=== PATIENT | female | born 1965 | race Caucasian/White ===

== ENCOUNTER 2019-06-29 05:53 | Observation (INO) ==
[2019-06-29] MEDS ORDERED: ASPIRIN ONE (06:11)
[2019-06-29] MEDS ORDERED: NITROGLYCERIN ONE (06:21)
[2019-06-29] MEDS ORDERED: ASPIRIN PO ONE (06:22)
[2019-06-29] MEDS ORDERED: TYLENOL PO ONE (06:24)
[2019-06-29] MEDS: ASPIRIN PO ONE ×2 (06:24→06:27)
[2019-06-29] MEDS ORDERED: NITROGLYCERIN SL ONE (06:25)
[2019-06-29 06:36] LABS: BASO# 0.02 X1000 (0.0-0.2); BASO% 0.2 % (0.0-0.8); EOS# 0.17 X1000 (0.0-0.7); HEMATOCRIT 42.1 % (37.0-47.0); LYMPH# 2.63 X1000 (1.2-3.4); LYMPH% 31.5 % (20.5-51.1); MCH 30.2 PG (27-31); MCHC 33.3 g/dL (33-37); MCV 90.9 FL (81-99); MONO# 0.47 X1000 (0.11-0.59); MONO% 5.6 % (1.7-9.3); MPV 10.1 FL (7.4-10.4); NEUT# 5.06 X1000 (1.4-6.5); NEUT% 60.7 % (42.2-75.2); PLT 214 X1000 (130-400); RBC 4.63 XMIL (4.2-5.4); RDW 13.1 % (11.5-14.5); WBC 8.35 X1000 (4.8-10.8)
--- NOTE | 2019-06-29 06:36 | PROVIDER DOCUMENTATION ---
HPI-Chest Pain - General Chief Complaint: Chest Pain Stated Complaint: CHEST PAIN (L) SIDE (PT IS DEAF) Time Seen by Provider: 06/29/19 06:09 Allergies/Adverse Reactions: Patient Allergies Allergy/AdvReac Type Severity Reaction Status Date / Time Penicillins Allergy Unknown Verified 06/29/19 06:59 Home Medications: Home Medication List Medication Instructions Recorded Confirmed Last Taken Type Isosorbide Mononitrate E.r. [Imdur] 30 mg PO DAILY 11/11/15 06/29/19 05/26/16 History Amlodipine [Norvasc] 10 mg PO DAILY 06/29/19 06/29/19 Unknown History Aspirin 81 mg PO DAILY 06/29/19 06/29/19 Unknown History - History of Present Illness-CP Location: reports: substernal Chest Pain Radiation: reports: jaw Severity in ED: moderate Onset/Duration: abrupt, other (ONSET O445) Timing: still present Context/Activities at Onset: reports: sleep Modifying Factors: improves with: nothing Associated Symptoms: denies: diaphoresis, shortness of breath Nitro Today/Relief: no nitro taken today Aspirin Treatment Today: no aspirin today Prior Chest Pain/Cardiac Workup: reports: no prior chest pain Similar Symptoms Previously?: No Recently Seen Here or By Another Healthcare Provider: No Review of Systems - Adult - REVIEW OF SYSTEMS - ADULT Constitutional: reports: no symptoms reported. denies: chills, fever, fatique Eyes: reports: no symptoms reported Ears, Nose, Mouth & Throat: reports: no symptoms reported Cardiovascular: reports: no symptoms reported Respiratory: reports: no symptoms reported Gastrointestinal: reports: no symptoms reported Genitourinary: reports: no symptoms reported Musculoskeletal: reports: no symptoms reported Integumentary: reports: no symptoms reported Neurological: reports: no symptoms reported, dizziness/vertigo (X 1 WK) Psychiatric: reports: no symptoms reported Endocrine: reports: no symptoms reported Hematologic/Lymphatic: reports: no symptoms reported Allergic/Immunologic: reports: no symptoms reported All Other Systems: Reviewed and Negative Past History - Adult - PAST MEDICAL HISTORY-ADULT Review of Records: reports: Nursing Assessment Review, Medications Reviewed, Social history reviewed & non-contributory. 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 TRTEATED FOR HTN, NO HTN MEDS TAKEN YET THIS MORNING.) Respiratory: reports: denies history Gastrointestinal: reports: denies history Obstetrical/Gynecological: reports: denies history Genitourinary: reports: denies history Musculoskeletal: reports: denies history Neurological: reports: denies history Endocrine/Immune: reports: denies history Other Conditions: reports: denies history - PRIOR SURGERIES/PROCEDURES Surgical/Procedure History: reports: hysterectomy - IMMUNIZATION STATUS Childhood Immunizations: See Nurse Assessment Flu Vaccine: See Nurse Assessment Physical Exam-General - PHYSICAL EXAM-ADULT Initial Vital Signs Reviewed: Yes (HTN) - CONSTITUTIONAL General Appearance: alert, moderate distress - EYES Eyes: PERRL/EOMI, pink conjunctivae - HEAD, EARS, NOSE, MOUTH & THROAT HENMT: normocephalic/atraumatic, moist mucous membranes - NECK Neck: full range of motion, supple - RESPIRATORY Respiratory: chest non-tender, lungs clear, no respiratory distress - CARDIOVASCULAR Cardiovascular: normal peripheral pulses, regular rate, rhythm, no edema, no ga llop, no JVD, no murmur - GASTROINTESTINAL (ABDOMEN) Abdominal Exam: non tender, soft - MUSCULOSKELETAL Extremity: normal range of motion, non-tender, normal inspection, no pedal edema , no calf tenderness - SKIN Integumentary: normal color, normal turgor - 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 negative: facial droop - PSYCHIATRIC Psych/Mental Status: normal mood/affect, normal thought content, normal thought process, oriented x 3 - HEART Score HEART Score: History: Moderately Suspicious HEART Score: ECG: Non-Specific Repolarization Disturbance/LBBB/PM HEART Score: Age: 45-65 Years HEART Score: Risk Factors for Atherosclerotic Disease: 1 or 2 Risk Factors Progress - PLAN OF CARE/RESULTS Progress/Plan/Lab Results: Vital Signs - 8 hr 06/29/19 06:02 Temperature 98.9 F Pulse Rate 69 Respiratory Rate 21 Blood Pressure 190/92 O2 Sat by Pulse Oximetry 98 Laboratory Results - last 24 hr 06/29/19 06/29/19 06/29/19 06:28 06:28 06:28 WBC 8.35 RBC 4.63 Hgb 14.0 Hct 42.1 MCV 90.9 MCH 30.2 MCHC 33.3 RDW Std Deviation 13.1 Plt Count 214 MPV 10.1 Immature Gran % (Auto) 0.0 Neut % (Auto) 60.7 Lymph % (Auto) 31.5 Walker % (Auto) 5.6 Eos % (Auto) 2.0 Baso % (Auto) 0.2 Immature Gran # (Auto) 0.00 Neut # (Auto) 5.06 Lymph # (Auto) 2.63 Walker # (Auto) 0.47 Eos # (Auto) 0.17 Baso # (Auto) 0.02 D-Dimer, Quantitative 0.49 Sodium 138 Potassium 4.3 Chloride 105 Carbon Dioxide 23 L Anion Gap 10 BUN 16 Creatinine 0.7 Estimated GFR/1.73 m2 > 60 BUN/Creatinine Ratio 23 Glucose 112 H Calculated Osmolality 278 Calcium 9.3 Magnesium 2.0 Total Bilirubin 0.41 AST 18 ALT 17 Alkaline Phosphatase 62 Troponin T Total Protein 6.5 Albumin 4.0 Globulin 2.5 Albumin/Globulin Ratio 1.6 06/29/19 06:28 WBC RBC Hgb Hct MCV MCH MCHC RDW Std Deviation Plt Count MPV Immature Gran % (Auto) Neut % (Auto) Lymph % (Auto) Walker % (Auto) Eos % (Auto) Baso % (Auto) Immature Gran # (Auto) Neut # (Auto) Lymph # (Auto) Walker # (Auto) Eos # (Auto) Baso # (Auto) D-Dimer, Quantitative Sodium Potassium Chloride Carbon Dioxide Anion Gap BUN Creatinine Estimated GFR/1.73 m2 BUN/Creatinine Ratio Glucose Calculated Osmolality Calcium Magnesium Total Bilirubin AST ALT Alkaline Phosphatase Troponin T < 0.010 Total Protein Albumin Globulin Albumin/Globulin Ratio Orders Category Date Time Status Cardiac Monitoring DIRECTED Care 06/29/19 06:19 Active Saline Loc NOW Care 06/29/19 06:19 Active CHEST-PORTABLE [RAD] Stat Exams 06/29/19 06:22 Taken CBC WITH ELECTRONIC DIFF [HEME] Stat Lab 06/29/19 06:28 Completed COMPREHENSIVE METABOLIC PANEL [CHEM] Stat Lab 06/29/19 06:28 Completed D-DIMER [COAG] Stat Lab 06/29/19 06:28 Completed FREE T4 Stat Lab 06/29/19 06:28 Received MAGNESIUM [CHEM] Stat Lab 06/29/19 06:28 Completed PROTIME WITH INR [COAG] Stat Lab 06/29/19 06:28 Received PTT [COAG] Stat Lab 06/29/19 06:28 Received TROPONIN T Stat Lab 06/29/19 06:28 Completed URINALYSIS W/POSS RFLX CULT [URINALYSIS] Stat Lab 06/29/19 06:59 Ordered Acetaminophen [Tylenol] Med 06/29/19 06:24 Discontinued 650 mg PO NOW ONE Aspirin Med 06/29/19 06:11 Discontinued 325 mg .ROUTE .STK-MED ONE Aspirin Med 06/29/19 06:22 Discontinued 325 mg PO NOW ONE Aspirin Med 06/29/19 06:24 Discontinued 325 mg PO NOW ONE Nitroglycerin Sl [Nitroglycerin] Med 06/29/19 06:21 Discontinued 0.4 mg .ROUTE .STK-MED ONE Nitroglycerin Sl [Nitroglycerin] Med 06/29/19 06:25 Discontinued 0.4 mg SL NOW ONE EKG [EKG] Stat Ther 06/29/19 06:19 Ordered EKG [EKG] Stat Ther 06/29/19 06:22 Ordered Result Diagrams: 06/29/19 06:28 06/29/19 06:28 - REASSESSMENT Reassessment #1 Time Reassessed: 06:45 Status: improving (CP BETTER WITH NITRO, ASA) - EKG 1 Time of EKG reading by physician:: 06:03 EKG Read and Signed by:: Raymundo Romero EKG Interpretation (*Must complete 3 of following elements*): Abnormal Rate: 65 Rhythm: NSR [place]: left QRS: RBB LA Interval: normal Comments: NSR,RBBB,L ANT FASCIC BLOCK,LVH - CONSULTS/PCP/HOSPITALIST Notification #1 *Consult/PCP/Hospitalist*: d/w Rosalva LINO, Time Discussed: 08:12 Consult Disposition: Admit (requested cardiology consult. Will page cardiology.) - CHANGE OF SHIFT REPORT (ED Provider) 1 Report Given and Care Transferred to:: DR Loni SOTELO Time of Transfer: 07:00 Items Pending: Labs, XRAY Results, Pain Control, Physician Consult/Arrival Departure - Departure Date of Disposition Decision: 06/29/19 Time of Disposition Decision: 08:17 DIAGNOSIS: Chest pain Disposition: ADMITTED INPATIENT 09 Certified Medical Emergency: Emergent Condition: Stable Referrals and Follow-Ups: Liliya Smith CRNP [Primary Care Provider] - - Critical Care Note This patient required my direct & personal management of CC.: No Attestation - Physician/ GARCÍA Attestation Patient care was provided by Advanced Practice Provider:: No The physician spent face to face time with patient:: Yes Advanced Practice Provider documentation review:: Supervising physician onsite and consulted in the evaluation and care of this patient. The physician did have a face to face encounter with the patient.
[2019-06-29 06:51] LABS: AGAP 10; ALB/GLOB RATIO 1.6; ALKALINE PHOSPHATASE 62 U/L (32-104); BUN 16 mg/dL (8-22); CALCIUM 9.3 mg/dL (8.8-10.2); CHLORIDE 105 mmol/L (98-107); COSMO 278; CREATININE 0.7 mg/dL (0.5-0.9); ESTIMATED GFR > 60; GLUCOSE 112 mg/dL (70-104); GOT 18 U/L (10-30); GPT 17 U/L (10-36); POTASSIUM 4.3 mmol/L (3.5-5.1); SODIUM 138 mmol/L (136-145); TCO2 23 mmol/L (25-35); TOTAL BILIRUBIN 0.41 mg/dL (0.20-1.00); TOTAL PROTEIN 6.5 g/dL (6.3-8.3)
[2019-06-29 07:08] LABS: URINE SOURCE CLEAN CATCH
[2019-06-29 07:14] LABS: BILIRUBIN URINE NEGATIVE (NEGATIVE); BLOOD URINE NEGATIVE (NEGATIVE); COLOR YELLOW; GLUCOSE URINE NEGATIVE (NEGATIVE); KETONE URINE NEGATIVE (NEGATIVE); LEUKOCYTES URINE NEGATIVE (NEGATIVE); NITRITE URINE NEGATIVE (NEGATIVE); PH URINE 6.5; PROTEIN URINE NEGATIVE (NEGATIVE); SP GRAVITY URINE 1.015; TURBIDITY URINE CLEAR (CLEAR); UROBILINOGEN URINE NORMAL (NORMAL)
[2019-06-29 07:15] LABS: UR EPITHELIAL CELLS <10 /HPF (<10); URINE BACTERIA NEGATIVE /HPF; URINE RBC <10 /HPF (<10); URINE WBC <10 /HPF (<10)
--- NOTE | 2019-06-29 07:21 | Diag Imaging Result Doc PS360 ---
EXAM: CHEST-PORTABLE HISTORY: CP TECHNIQUE: Single view COMPARISON: 11/25/2017 FINDINGS: The lungs are well expanded. The heart is mildly prominent. The vessels are not distended. There are no infiltrates. No effusion identified. IMPRESSION: Mildly prominent heart. Electronically signed by Vasile Merida 06/29/2019 7:18 AM
[2019-06-29 07:28] LABS: INR 0.96; PROTIME 12.8 Seconds (11.0-16.0); PTT 28.1 Seconds (22.3-41.8)
--- NOTE | 2019-06-29 07:44 | EKG Report ---
Test Performed on : 06/29/2019 06:55:01 AM Test Reason : CP Blood Pressure : / mmHG Vent. Rate : 065 BPM Atrial Rate : 065 BPM P-R Int : 154 ms QRS Dur : 134 ms QT Int : 424 ms P-R-T Axes : 050 -57 004 degrees QTc Int : 440 ms Normal sinus rhythm. Right bundle branch block Left anterior fascicular block Bifascicular block Voltage criteria for left ventricular hypertrophy Abnormal ECG No previous ECGs available Unconfirmed Result
[2019-06-29] MEDS ORDERED: ZOFRAN IV PRN (08:52)
[2019-06-29] MEDS ORDERED: TYLENOL PO PRN (08:52)
[2019-06-29] MEDS ORDERED: NITROGLYCERIN SL PRN (08:52)
[2019-06-29] MEDS ORDERED: LOVENOX SUBQ SCH (09:00)
[2019-06-29] MEDS ORDERED: APRESOLINE IV PRN ×2 (10:06→11:13)
[2019-06-29 10:10] LABS: HEMOGLOBIN A1C 5.3 % (4.8-6.0)
--- NOTE | 2019-06-29 11:28 | EKG Report ---
Test Performed on : 06/29/2019 09:22:46 AM Test Reason : ED. No order in [place] Blood Pressure : / mmHG Vent. Rate : 044 BPM Atrial Rate : 044 BPM P-R Int : 158 ms QRS Dur : 132 ms QT Int : 478 ms P-R-T Axes : 033 -52 004 degrees QTc Int : 408 ms Marked sinus bradycardia. Right bundle branch block Left anterior fascicular block Bifascicular block Voltage criteria for left ventricular hypertrophy Abnormal ECG When compared with ECG of 29-JUN-2019 06:55, (Unconfirmed) Vent. rate has decreased BY 21 BPM Unconfirmed Result
[2019-06-29] MEDS ORDERED: ROBAXIN PO ONE (11:48)
[2019-06-29] MEDS ORDERED: ROBAXIN PO PRN (11:48)
--- NOTE | 2019-06-29 12:49 | HISTORY AND PHYSICAL ---
PRIMARY CARE PROVIDER: ZOIE Ramires. CHIEF COMPLAINT: Chest pain. HISTORY OF PRESENT ILLNESS: Ms. Angélica Nunez is a 53-year-old, female with a medical history of hypertension, depression, and complete deafness, and apparently a history of some chronic chest pains. She has had a stress test back in 2012, which at that time was reported as either breast attenuation or a suggestion of mild degree of inducible ischemia involving the apical anterior portion of the left ventricle. She does not smoke. She has a normal cholesterol level. She is not diabetic. She is only mildly overweight with a BMI of 35.8. She states that over the last 24 hours, she has been having intermittent chest pain that has radiated into the jaw, the teeth, the neck, down into the left arm. She claims that it can be reproduced when she presses on her chest and it was reproduced mostly in the muscular area closest to the left axillary area. She works at a location called [employer] where she is on her feet for 8 hours and constantly pushing, pulling, and lifting with strenuous amounts of weight. Currently, she is chest pain-free at this time. Cardiac workup included cardiac enzymes which were negative, an EKG without any ST elevations. She did receive nitroglycerin in the emergency department which caused her to have a headache. Apparently, she had not had any of her morning medications which included Norvasc. That was resumed because she presented with a blood pressure anywhere from 170s to 190s and so we will admit her for a full cardiac workup including an echocardiogram, cardiac enzymes, EKG for tomorrow, and a stress test today. Please note that the patient is deaf. The [employer] system is not working. Interpretation services are not going to be available until tomorrow morning. Currently attempting to get [employer] services to work. She may be moved to a different room but we will find a location that will be reproducible for a service of interpretation and sign language. It is noted that she has a daughter who is deaf at the bedside. She has an 11-year-old son who does speak sign language but not officially an audit director for medical terms. During the examination and the assessment and questioning, the patient turned to her son after stating that he is not allowed to interpret for her, that she asked him to describe what kind of work she does as far as the pushing and pulling and being on her feet for 8 or more hours a day. Otherwise, all questions and answers were via a dry erase board. Once leaving the room, she had no further questioning. The patient was explained what she was here for and what all of workup would be included during her stay. PAST MEDICAL HISTORY: 1. Deaf. 2. Depression. 3. Chronic chest pain. 4. Hypertension. SURGICAL HISTORY: 1. Two sections. 2. Hysterectomy. SOCIAL HISTORY: She denies drinking alcohol, smoking, or any illicit drug use. She has 2 children. Her son currently is 11, is able to speak some sign language and he is able to hear. Then she has a daughter who is also deaf, and she currently works at [employer] full-time. FAMILY HISTORY: Father of a myocardial infarction at the age of 54. Mother and sister, they had hyperlipidemia, diabetes, and hypertension. ALLERGIES: Penicillin. HOME MEDICATIONS: 1. Aspirin 81 mg p.o. daily. 2. Imdur 30 mg p.o. daily. 3. Norvasc 10 mg p.o. daily. REVIEW OF SYSTEMS: All are negative except those mentioned above in the HPI except for her intermittent chest pain is 8/10 when it does happen. Last week, she had some dizziness with headaches. She had also seen her primary care provider during that time, Liliya Smith, who claimed it was fluid in the ears. She has had some complaints of frequent urination. The chest pain is worse with activity and is resolved with resting. PHYSICAL EXAMINATION: VITAL SIGNS: Temperature 97.8 degrees, heart rate 59, respiratory rate 21, blood pressure 179/54, O2 saturation 99% on room air. GENERAL: Ms. Angélica Nunez is a 53-year-old, female. She is in no acute distress. She is able answer questions appropriately via a dry erase board. HEENT: Atraumatic, normocephalic. Pupils equal, round, reactive to light. Extraocular movements intact. Mucous membranes are moist. NECK: Trachea midline. CARDIOVASCULAR: S1, S2. Bradycardic rate and rhythm. No rubs, gallops, murmurs. Trace lower extremity edema. There are +2 dorsalis and radial pulses. Negative JVD or carotid bruits. PULMONARY: Clear to auscultate bilateral breath sounds. No accessory muscle use or work of breathing noted. GI: Soft, nontender, nondistended. Positive bowel sounds x4. EXTREMITIES: Moves all extremities equally. Full range of motion. NEUROLOGIC: A and O x3. Follows commands. Sensory is intact. SKIN: Warm, dry, intact. LABORATORY DATA: White blood cells 8000, hemoglobin 14, hematocrit 42, platelet count 214,000. INR is 0.96, PTT is 28.1. D-dimer is 0.49. Sodium 138, potassium 4.3, BUN 16, creatinine 0.7, glucose 112, hemoglobin A1c is 5.3, calcium 9.3, magnesium 2.0. Total bilirubin 0.41, AST 18, ALT 17. CK is 93, then it was 88. Troponin less than 0.01 x2. CRP is 2.61. Albumin is 4.0. Triglycerides 105, cholesterol total was 149, LDL 100, HDL 32. TSH is 3.61, free T4 is 0.99. Urinalysis negative. IMAGING: Chest x-ray, mildly prominent heart. EKG, normal sinus rhythm, rate 65, QTc is 440. There is a right bundle branch block, showing some LVH criteria, and it is claiming a bifascicular block. ASSESSMENT AND PLAN: 1. Complaints of chest pain with differential diagnosis being muscular left chest pain along with possible costochondritis. Pain was reproducible with palpation. It is worse when she is up and active. She has been doing a lot of pushing and pulling at work while she works at [employer]. The pain has been on and off for a long time but worse over the last 24 hours. Currently, she is going to have serial cardiac enzymes, an echocardiogram, stress test, nitroglycerin for chest pain or morphine for chest pain. Currently going to continue on aspirin and isosorbide mononitrate or the Imdur. 2. Hypertension, possibly uncontrolled. It was 190s, 170s, 190s, and she had not taken her amlodipine this morning so that has been resumed and we have added hydralazine as needed. 3. Bradycardia but not symptomatic. She is on telemetry. We will continue to monitor. There are also no medications that she is on for it. Again, she is having a stress test done. Right coronary artery location of lesions can cause bradycardia so we will need to monitor her for that. 4. Depression. No home medications for that. 5. Deep venous thrombosis prophylaxis. Lovenox. 6. Deaf. Interpretation services currently unavailable but attempting to get WiFi service and we will get this for her. We will also get her the interpretation services she needs. Currently, communication is via a dry erase board only. Dictated by ZOIE Bradley for Sy Fagan MD cc: ZOIE Bradley MD
[2019-06-29] MEDS: MORPHINE IV PRN ×2 (14:10→20:01)
[2019-06-29] MEDS ORDERED: LEXISCAN ONE (15:16)
[2019-06-29] MEDS: IMDUR PO SCH (18:51)
[2019-06-29] MEDS: NORVASC PO SCH (18:53)
[2019-06-29 19:09] LABS: UR AMPHETAMINES QUAL NONE DETECTED (NONE DETECT); UR BARBITUATES QUAL NONE DETECTED (NONE DETECT); UR BENZODIAZEPIN QUAL NONE DETECTED (NONE DETECT); UR CANNABINOIDS QUAL NONE DETECTED (NONE DETECT); UR COCAINE QUAL NONE DETECTED (NONE DETECT); UR METHADONE QUAL NONE DETECTED (NONE DETECT); UR OPIATES QUAL NONE DETECTED (NONE DETECT); UR OXYCODONE QUAL NONE DETECTED (NONE DETECT); UR PCP QUAL NONE DETECTED (NONE DETECT)
--- NOTE | 2019-06-29 19:13 | HISTORY AND PHYSICAL ---
ADDENDUM TO HISTORY AND PHYSICAL: I have seen and examined Ms. Nunez today. Ms Nunez is deaf; she is however able to write, and most of our interactions were through writing on the clipboard. At the later part, the attending nurse Ms. Paz came to join us. Ms Nunez got admitted because of chest pain to rule out any coronary artery disease. So far EKGs have been unremarkable. Troponin x2 has also been unremarkable. The patient has done a stress test, and we are pending the results. Ms. Nunez also refers to have some abdominal pain, especially on the left side which according to her has been there for so many times she has been to multiple doctors and now is just hurting her, and she wants to find out what is going on so we are going to get a CT scan of the abdomen. I have reviewed the history and physical, which has been dictated by the nurse and I agree. The plan reflects my discussions with her. cc: Sy Fagan MD MTDD
--- NOTE | 2019-06-29 19:24 | ECHO REPORT ---
ORDER DATE: 06/29/2019 INTERPRETING PHYSICIAN: Dr. Garcia CLINICAL INDICATIONS: Chest pain. REQUESTING PROVIDER: ZOIE Bradley. M-MODE MEASUREMENTS: Left ventricle end diastole: 5.3 cm. Left ventricle end systole: 3.5 cm. Posterior wall: 0.8 cm. Interventricular septum: 0.8 cm. Left atrium: 4.0 cm. Aortic diameter: 3.2 cm. SUMMARY OF 2-DIMENSIONAL IMAGIN. The left ventricular function is normal. Ejection fraction is 70%. There is no wall motion abnormality. 2. Right ventricle appears to be mildly enlarged. 3. The aortic valve looks normal. Color flow mapping unremarkable. 4. Mitral valve looks normal. Color flow mapping unremarkable. 5. Pulsed wave Doppler of mitral inflow is normal. 6. The tissue Doppler of septal and lateral mitral annulus averages 14 cm. 7. The pulmonary venous flow is normal. 8. There is no diastolic dysfunction. 9. The pulmonic valve is normal. Color flow mapping is unremarkable. 10.Tricuspid valve shows mild degree of regurgitation. Inferior vena cava is normal. 11.Pulmonary pressure is estimated at 40 mmHg. 12.There is no pericardial effusion, mass, and no thrombus. 13.Left atrium is at the upper limits of normal. CONCLUSIONS: In summary, this study shows: 1. Excellent left ventricular systolic dysfunction. 2. Unremarkable aortic, mitral, and pulmonic valves. There is mild degree of tricuspid regurgitation with a pulmonary pressure of 40 mmHg. 3. No diastolic dysfunction. 4. Mildly enlarged left atrium. Clinical correlation is recommended. cc: MD Rosalva Becerra CRNP
--- NOTE | 2019-06-29 20:53 | Diag Imaging Result Document ---
PROCEDURE NAME: MYOCARDIAL PERF SCAN, STR/REST - 06/29/2019 STUDY: Rest/stress Lexiscan myocardial perfusion study. INDICATION: Chest pain. Abnormal EKG. DESCRIPTION: The patient came into the nuclear lab and received a rest injection of technetium 99 sestamibi 14.5 mCi. Multiple tomographic views of the cardiac structures were obtained at rest. Subsequently, the patient underwent infusion of Lexiscan, 0.4 mg. At peak infusion, she was injected with technetium 99 sestamibi 42.2 mCi. Multiple tomographic views of the cardiac structures were obtained following the completion of the protocol. SUMMARY OF THE ELECTROCARDIOGRAPHIC PORTION OF THE STUDY: Resting ECG showed sinus bradycardia with a rate of 48 beats per minute. Resting blood pressure is 198/80. Resting ECG shows a right bundle branch block with a left anterior fascicular block type of pattern. Poor R wave progression. During the protocol, the heart rate increased to a maximum of 93 beats per minute. The blood pressure dropped to 168/64. The patient reported no chest pain, shortness of breath, or palpitations. The ECG showed no changes. Following the completion of the test, the heart rate and blood pressure returned back to their baseline. In summary, the electrocardiographic response to infusion of Lexiscan is normal. SUMMARY OF THE MYOCARDIAL PERFUSION PORTION OF THE STUDY: Poststress tomographic views of the left ventricle showed normal homogeneous distribution of radiotracer throughout the entire left ventricular myocardium. There is no evidence of any postexercise defect. The resting images showed normal perfusion. Polar plots revealed the same. There is no evidence of any inducible ischemia nor myocardial scar. The gated SPECT shows generous sized left ventricular chamber with normal ejection fraction of 76%. No wall motion abnormality. The lung/heart ratio is normal. The TID is normal. SUMMARY: This study shows: 1. Abnormal resting electrocardiogram with sinus bradycardia, left anterior fascicular block, and right bundle branch block with unremarkable response to infusion of Lexiscan. 2. Normal poststress myocardial perfusion scan. There is no scintigraphic evidence of pharmacologically induced myocardial ischemia utilizing the Lexiscan protocol. 3. Normal left ventricular systolic function with ejection fraction of 76% with normal ventricular volumes and no wall motion abnormality. This study represents low risk for ischemic events. cc: MD Rosalva Becerra CRNP
--- NOTE | 2019-06-29 22:13 | Diag Imaging Result Doc PS360 ---
CT ABD/PELVIS W/IV CONT ONLY - 06/29/2019 INDICATION: severe left upper quandrant pain. ? renal stones COMPARISON: 05/28/2016 FINDINGS: The lung bases are clear and the heart size is normal. The liver, gallbladder, spleen, pancreas, adrenals, and kidneys are normal. No bowel obstruction or inflammation. Normal appendix. Uterus is absent. Urinary bladder and rectum are normal. No significant constipation. There are moderate degenerative changes of the spine. No acute or suspicious bony lesion. IMPRESSION: No acute disease. This exam was performed using automated exposure control, adjustment of mA or kV according to patient size, and/or use of iterative reconstruction technique Electronically signed by Michael Joe 06/29/2019 10:10 PM
[2019-06-30] MEDS ORDERED: PRILOSEC PO SCH (07:00)
--- NOTE | 2019-06-30 07:13 | EKG Report ---
Test Performed on : 06/30/2019 07:02:24 AM Test Reason : chest pain Blood Pressure : / mmHG Vent. Rate : 049 BPM Atrial Rate : 049 BPM P-R Int : 164 ms QRS Dur : 136 ms QT Int : 478 ms P-R-T Axes : 030 -56 -10 degrees QTc Int : 431 ms Critical Test Result: Low HR Sinus bradycardia. Right bundle branch block Left anterior fascicular block Bifascicular block Moderate voltage criteria for LVH, may be normal variant Abnormal ECG When compared with ECG of 29-JUN-2019 09:22, (Unconfirmed) No significant change was found Unconfirmed Result
[2019-06-30 07:17] LABS: BASO# 0.02 X1000 (0.0-0.2); BASO% 0.4 % (0.0-0.8); EOS# 0.19 X1000 (0.0-0.7); EOS% 3.4 % (0.0-10.0); HEMATOCRIT 39.6 % (37.0-47.0); HEMOGLOBIN 12.9 g/dL (12.0-16.0); LYMPH# 1.81 X1000 (1.2-3.4); LYMPH% 32.6 % (20.5-51.1); MCH 29.7 PG (27-31); MCHC 32.6 g/dL (33-37); MONO# 0.38 X1000 (0.11-0.59); MONO% 6.8 % (1.7-9.3); MPV 10.2 FL (7.4-10.4); NEUT# 3.15 X1000 (1.4-6.5); NEUT% 56.8 % (42.2-75.2); PLT 235 X1000 (130-400); RBC 4.35 XMIL (4.2-5.4); RDW 12.9 % (11.5-14.5); WBC 5.55 X1000 (4.8-10.8)
[2019-06-30 07:19] VITALS: BP 165/63
--- NOTE | 2019-06-30 07:30 | DISCHARGE SUMMARY ---
ADMISSION DATE: 06/29/2019 DISCHARGE DATE: HISTORY OF PRESENT ILLNESS: Ms. Nunez is followed by ZOIE Ramires. She presented on 06/29/2019, and was discharged on 06/30/2019. She presented with chest pain. A 53-year-old female with medical history of hypertension, depression, complete deafness. Apparently has a history of some chronic chest pains. Had a stress test back in 2012. At that time was reported as either breast attenuation or suggestion of a mild degree of inducible ischemia involving the apical anterior portion of the ventricle. She does not smoke. She has apparently normal cholesterol, and is not diabetic. She is overweight with a BMI of 35.8. States that 24 hours before she came in, she had intermittent chest pain. She points over to the left side of her chest, radiated into her jaw and teeth and neck, down into her left arm. She claims it can be reproduced when she presses on her chest, and mostly in the musculoskeletal area closest to the left axillary area. She works at a location called [employer], where she is on her feet 8 hours, constantly pushing, pulling, or lifting a strenuous amount of weight. When she presented, she was pain-free. On cardiac workup, cardiac enzymes were negative. EKG was without any ST-segment deviations. She was given nitroglycerin in the emergency room, and it caused her to have a headache. PAST MEDICAL HISTORY: 1. Complete deafness. 2. Depression. 3. Chronic chest pain. 4. Hypertension. PAST SURGICAL HISTORY: 1. Two sections. 2. Hysterectomy. ADMISSION DIAGNOSES: 1. Chest pain, suspect chest wall pain. She reports some symptoms of acid reflux. 2. History of hypertension. 3. Had some mild bradycardia, but was asymptomatic. IMAGING: She had a chest x-ray on 06/29/2019: Lungs are well expanded. Heart was mildly prominent. The vessels were not distended. Echocardiogram with Doppler on 06/29/2019: I do not see report. Was reported to be unremarkable. She had abnormal resting EKG with some sinus bradycardia and left anterior fascicular block and right bundle branch block, unremarkable response to infusion of Lexiscan, normal post-stress myocardial perfusion scan, no evidence of pharmacologically-induced ischemia, normal left ventricular systolic function with ejection fraction of 76%. She had an abdominopelvic CT that saw no acute disease. Henrietta better. She wanted to go home. Blood pressures ran around 176/75, 152/43, 178/53. DISCHARGE MEDICATIONS: She was on amlodipine 10 mg a day, aspirin 81 mg a day, benazepril I believe that is 40 mg daily, isosorbide mononitrate she was on 30 mg a day, so continue that. Discharge medicines will be Norvasc 10 mg a day, aspirin 81 mg a day, Imdur 30 mg a day. She was taking Robaxin for muscle spasm, I will let her have some of those to take home, and then we put her on Prilosec 20 mg. I think I will have her on 40 mg of Prilosec daily because of her history of reflux. FOLLOWUP: She will follow up with her primary care physician, which is Liliya Smith. cc: Vivek Bernal MD
[2019-06-30 07:38] LABS: AGAP 7; ALB/GLOB RATIO 1.6; ALBUMIN 3.6 g/dL (3.5-5.0); ALKALINE PHOSPHATASE 57 U/L (32-104); BUN 12 mg/dL (8-22); CALCIUM 8.7 mg/dL (8.8-10.2); CHLORIDE 107 mmol/L (98-107); COSMO 281; CREATININE 0.7 mg/dL (0.5-0.9); ESTIMATED GFR > 60; GLUCOSE 103 mg/dL (70-104); GOT 14 U/L (10-30); GPT 14 U/L (10-36); MAGNESIUM 2.1 mg/dL (1.5-2.7); POTASSIUM 3.9 mmol/L (3.5-5.1); SODIUM 141 mmol/L (136-145); TCO2 27 mmol/L (25-35); TOTAL PROTEIN 5.8 g/dL (6.3-8.3)
[2019-06-30] MEDS: NORVASC PO SCH (08:36)
[2019-06-30] MEDS: IMDUR PO SCH (08:36)
[2019-06-30] MEDS ORDERED: ASPIRIN PO SCH (09:00)
--- NOTE | 2019-07-01 12:30 | DISCHARGE SUMMARY ---
ADMISSION DATE: 06/29/2019 DISCHARGE DATE: 06/30/2019 ADDENDUM: Ms. Nunez was actually discharged earlier on by Dr. Bernal. A dictation summary is in the chart. I do agree with the discharge summary. Ms Nunez got admitted with a diagnosis of: 1. Chest pain, to rule out. 2. Hypertension. 3. Depression. 4. Deaf. After the investigations including a stress test which is negative, a CT scan of the abdomen which is completely unremarkable, Ms Nunez is deemed medically stable for discharge. We think her pain is noncardiac and she has also been advised to follow up with GI at a later date to rule out any GI-related possible causes of the pain. Please refer to the details of the discharge summary which was dictated by Dr. Bernal. cc: Sy Fagan MD
== END 2019-06-30 09:56 | disposition home or self-care (01) ==
LOC: 3N 05:53 → ED 05:53
PROVIDERS: ATTEND Internal Medicine